=== PATIENT | male | born 1960 | race Hispanic/Latino ===

== ENCOUNTER 2016-05-26 10:23 | Observation (INO) | payer MEDICAID, OTHER ==
[2016-05-26 10:31] VITALS: BMI 25.1
[2016-05-26 11:16] LABS: BASO % 0.5 % (0.0-2.0); EOS # 0.3 K/uL (0.0-0.7); EOS % 3.4 % (0.0-4.0); HEMATOCRIT 39.5 % (35.0-51.0); LYMPH # 1.4 K/uL (1.0-4.3); LYMPH % 17.1 % (20.0-40.0); MEAN CELL VOLUME 88.1 fl (80.0-94.0); MEAN CORPUSCULAR HEMOGLOBIN 30.3 pg (27.0-31.0); MEAN CORPUSCULAR HGB CONC 34.3 g/dL (33.0-37.0); MEAN PLATELET VOLUME 9.8 fl (7.2-11.7); MONO # 0.9 K/uL (0.0-0.8); MONO % 10.7 % (0.0-10.0); NEUT # 5.6 K/uL (1.8-7.0); NEUT % 68.3 % (50.0-75.0); RED CELL DISTRIBUTION WIDTH 14.4 % (11.5-14.5); WHITE BLOOD COUNT 8.3 K/uL (4.8-10.8)
[2016-05-26 11:27] LABS: BLOOD UREA NITROGEN 13 mg/dl (9-20); CARBON DIOXIDE 23 mmol/L (22-30); CHLORIDE 104 mmol/L (98-107); GFR AFRICAN-AMERICAN > 60; GLUCOSE,RANDOM 98 mg/dL (75-110); SODIUM 139 mmol/l (132-148)
[2016-05-26 11:35] LABS: PARTIAL THROMBOPLASTIN TIME 27.8 SECONDS (23.3-32.5)
--- NOTE | 2016-05-26 11:39 | ED PDOC ---
HPI: Chest Pain Time Seen by Provider: 05/26/16 10:40 Chief Complaint (Nursing): Chest Pain Chief Complaint (Provider): Chest Pain History Per: Patient History/Exam Limitations: no limitations Current Symptoms Are (Timing): Still Present Severity: Mild Quality: "Pain" Associated Symptoms: Dyspnea. denies: Nausea Modifying Factors: None Exacerbating Factors: Exertion Alleviating Factors: None Additional Complaint(s): Patient is a 56 year old male with an extensive medical history, presents to ED for evaluation of chest pain for 1 month but worsening in the last 3 days. Patient reports pain is worse with exertion associated with SOB. Patient also reports bilateral leg swelling with pain for several months. Notes he ran out of his medication 1 week ago but has no insurance or a doctor in this area, originally from [place]. Denies palpations, radiation of pain, nausea or vomiting. Taking ASA daily. Past Medical History Reviewed: Historical Data, Nursing Documentation, Vital Signs Vital Signs: Last Vital Signs Temp 98.0 F 05/26/16 10:29 Pulse 67 05/26/16 10:29 Resp 16 05/26/16 10:29 BP 125/73 05/26/16 10:29 Pulse Ox 100 05/26/16 11:44 - Medical History PMH: Anxiety, CAD, HTN, Hypercholesterolemia - Surgical History Surgical History: CABG (2013), Coronary Stent (7 within 10 yrs) - Family History Family History: States: Unknown Family Hx - Immunization History Hx Tetanus Toxoid Vaccination: No Hx Influenza Vaccination: Yes (10/2015) Hx Pneumococcal Vaccination: No - Home Medications Home Medications: Ambulatory Orders Medication Instructions Recorded Aspirin [Ecotrin] 81 mg PO DAILY 05/26/16 Metoprolol Succinate [Metoprolol 50 mg PO DAILY 05/26/16 Succinate] Pantoprazole Sodium [Protonix] 40 mg PO DAILY 05/26/16 Risperidone [Risperidone Odt 0.25 mg PO BID 05/26/16 0.25MG] Sertraline [Zoloft] 50 mg PO DAILY 05/26/16 amLODIPine [Norvasc] 5 mg PO DAILY 05/26/16 traZODone [Desyrel] 100 mg PO HS 05/26/16 - Allergies Allergies/Adverse Reactions: Allergies Allergy/AdvReac Type Severity Reaction Status Date / Time atorvastatin calcium AdvReac SWELLING Verified 05/26/16 10:35 [From Lipitor] rosuvastatin calcium AdvReac SWELLING Verified 05/26/16 10:35 [From Crestor] ARI Risk Score for UA/NSTEMI - ARI Risk Score Age > 64: NO 3 or more CAD Risk Factors: YES Known CAD (Stenosis greater than 50%): NO Aspirin use in past 7 days: YES Severe Angina: YES EKG ST changes greater than 0.5mm: NO Positive Cardiac Marker: NO ARI Score: 3 Risk %: 13% Review of Systems ROS Statement: Except As Marked, All Systems Reviewed And Found Negative Eyes: Negative for: Vision Change Cardiovascular: Positive for: Chest Pain. Negative for: Palpitations, Light Headedness Respiratory: Positive for: Shortness of Breath. Negative for: Hemoptysis Gastrointestinal: Negative for: Nausea, Vomiting Musculoskeletal: Negative for: Neck Pain Neurological: Negative for: Weakness, Numbness, Headache, Dizziness Physical Exam - Reviewed Nursing Documentation Reviewed: Yes Vital Signs Reviewed: Yes - Physical Exam Appears: Positive for: Non-toxic, No Acute Distress Skin: Positive for: Normal Color, Warm. Negative for: Diaphoresis Eye Exam: Positive for: Normal appearance, PERRL Neck: Positive for: Normal, Painless ROM Cardiovascular/Chest: Positive for: Regular Rate, Rhythm, Chest Non Tender. Negative for: Murmur Respiratory: Positive for: Normal Breath Sounds. Negative for: Respiratory Distress Gastrointestinal/Abdominal: Positive for: Normal Exam. Negative for: Tenderness Extremity: Positive for: Normal ROM. Negative for: Calf Tenderness Neurologic/Psych: Positive for: Alert, Oriented - Laboratory Results Result Diagrams: 05/26/16 11:13 05/26/16 11:13 - ECG O2 Sat by Pulse Oximetry: 100 (RA) Pulse Ox Interpretation: Normal Medical Decision Making Medical Decision Making: Time: 1055 Initial impression: Chest pain r/o ACS due to history of CAD Initial plan: -- EKG -- BnP -- Troponin -- CBC -- PT/PTT -- CXR -- ASA -- Cardiac monitoring Scribe Attestation: Documented by Tiffanie Ann acting as a scribe for Racheal Mendoza MD MD Scribe Attestation: All medical record entries made by the Scribe were at my direction and personally dictated by me. I have reviewed the chart and agree that the record accurately reflects my personal performance of the history, physical exam, medical decision making, and the department course for this patient. I have also personally directed, reviewed, and agree with the discharge instructions and disposition. Disposition - Clinical Impression Clinical Impression: Chest pain - Patient ED Disposition Is Patient to be Admitted: Yes Discussed With DrAlexus: Yuan Cleary Doctor Will See Patient In The: ED Counseled Patient/Family Regarding: Studies Performed, Diagnosis - Disposition Disposition Time: 12:10 Condition: FAIR - Pt Status Changed To: Hospital Disposition Of: Observation - POA Present On Arrival: None, Poor Glycemic Control Core Measure Indicators: Chest Pain
[2016-05-26 11:40] LABS: POTASSIUM 4.7 MMOL/L (3.6-5.0)
[2016-05-26] MEDS: Pantoprazole 40 mg EC Tab PO SCH (13:39)
--- NOTE | 2016-05-26 13:43 | CP.PCM.HP ---
History of Present Illness - History of Present Illness History of Present Illness: Hospitalist Admission H&P (Patient was seen and examined at 12:45 PM 05/26/16 ER Bed #15) PMD: Dr. Corbin in [facility] but has not seen for some time as NO insurance CODE STATUS: NO living will/advance directive. FULL CODE. Would like best friend Kt Ornelas to be his Health Care Proxy. Patient could not provide Kt's contact information at the time of my exam. CHIEF COMPLAINT: Chest Pain 56 year old male (PMHx: CAD with multiple Stents/CABG, HTN, HLD with Allergy to Statins, Depression, B/L LE PAD, Insomnia) who presented to [facility] ER earlier this morning with a Chief Complaint of Chest Pain. Patien states that he ran out of his medications roughly 1 week ago. Then 3 days ago he started to experience a sharp/tight pressure like pain in the left chest along the left lower sternal border. This pain would last anywhere between 5 and 10 minutes and states that it was similar to the pain that he had that lead to his CABG. It was associated with numbness/tingling sensation in the palm and all of the fingertips of this left hand as well as the lateral anterior aspect of the left antecubital fossa. Then this morning, he states that these symptoms were at the most intense and became more persistant and the dyspnea (which he has been experiecing for the "some time" now) started to get worse as well. Because of this he became concerned and walked from the [facility] in [place] to [facility] to be evaluated. Please note that the patient was seen at [facility] for similar complaint from 01/21/16 through 02/02/16: 1). Echocardiogram 01/21/16 showed Normal LV Systolic Function, Borderline Dilated LQ, Trace Mitral and Tricuspid Regurgitation 2). Cardiac Enzymes at that time were negative x 3 3). He was discharged with instructions to follow up with Cue Worker/Health Clinic to have Stress Test done Patient reveals that he had a "sitting down" stress test at [facility] in [place], [place] a couple of weeks ago and was told that it was negative. Currently upon FULL ROS he is not experiencing the Chest Pain as described above but is experiencing Left lower rib cage tightness, NO dyspnea/sob/cough, NO soreness in throat/dysphagia/odynophagia, NO abdominal pain, NO n/v/d/c, ( Some blood with wiping roughly 1 week ago), NO burning/pain with urination, NO lightheadedness/dizziness, NO new change in vision/eye pain/(+)blurriness of vision when trying to read for some time now, NO new changes in hearing/ear pain /tinnitus, NO headaches, NO current paresthesias, NO edema, (+) Pain in the bilateral feet/ankles when walking (this is a chronic issue present for some due to Hx of PAD) PMHx: CAD S/P Cardiac Stents and CABG, HTN, HLD, Depression, B/L LE PAD with Leg Stents PSHx: CABG, Cardiac Catheterization, Left Leg Arterial Stents ALL: Statins (Causes severe myalgia in the bilateral lower legs) Medications: Metoprolol Tartrate 50 mg PO 1x/day, Trazadone 150 mg PO QHS, ASA 81 mg PO 1x/day, Amlodipine 5 mg PO 1x/day, Protonix 40 mg PO 1x/day, Risperdal 2.5 mg PO 2x/day Social Hx: 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, Lives at the [facility] in [facility], (+)Tobacco quit in November 2015 at which time smoking 1/2 pack a day for 10 years, (+) Alcohol quit in November 2015 when he was drinking 12 pack of beer daily for 40 plus years, NO illicit drugs Family Hx: Mom (first [place] in her late 50s, of [place] in her 70s), Dad ( alive in his 80s [place]), Sister (HTN), Brother (HTN, Alcoholism) Present on Admission - Present on Admission Any Indicators Present on Admission: Yes History of DVT/PE: No History of Uncontrolled Diabetes: No Urinary Catheter: No Decubitus Ulcer Present: No Review of Systems - Review of Systems Review of Systems: PLEASE SEE HPI Past Patient History - Past Medical History & Family History Past Medical History?: Yes Pertinent Family History: PLEASE SEE HPI - Past Social History Smoking Status: Former Smoker - CARDIAC Hx Hypercholesterolemia: Yes Hx Hypertension: Yes - INTEGUMENTARY Other/Comment: DVT left leg - MUSCULOSKELETAL/RHEUMATOLOGICAL Hx Falls: No - GASTROINTESTINAL Hx Gastroesophageal Reflux: Yes - PSYCHIATRIC Hx Anxiety: Yes - SURGICAL HISTORY Hx Coronary Artery Bypass Graft: Yes (2013) Hx Coronary Stent: Yes (7 within 10 yrs) - ANESTHESIA Hx Anesthesia: Yes Hx Anesthesia Reactions: No Meds Allergies/Adverse Reactions: Allergies Allergy/AdvReac Type Severity Reaction Status Date / Time atorvastatin calcium AdvReac SWELLING Verified 05/26/16 10:35 [From Lipitor] rosuvastatin calcium AdvReac SWELLING Verified 05/26/16 10:35 [From Crestor] Physical Exam - Constitutional Appears: Non-toxic, No Acute Distress - Head Exam Head Exam: ATRAUMATIC, NORMAL INSPECTION, NORMOCEPHALIC - Eye Exam Eye Exam: EOMI, Normal appearance, PERRL Pupil Exam: NORMAL ACCOMODATION, PERRL - ENT Exam ENT Exam: Mucous Membranes Moist, Normal Exam, Normal External Ear Exam, Normal Oropharynx - Neck Exam Neck exam: Positive for: Normal Inspection Additional comments: NO CERVICAL LYMPHADENOPATHY NO THYROMEGALY - Respiratory Exam Respiratory Exam: Clear to Auscultation Bilateral, NORMAL BREATHING PATTERN Additional comments: CTA B/L, NO R/R/W - Cardiovascular Exam Cardiovascular Exam: REGULAR RHYTHM, +S1, +S2 Additional comments: NS1 AND NS2, NO M/R/G - GI/Abdominal Exam GI & Abdominal Exam: Normal Bowel Sounds, Soft Additional comments: BS X 4, SOFT, NT, ND, NO HSM, NO GUARDING/REBOUND TENDERNESS - Rectal Exam Additional comments: EXTERNAL HEMORRHOIDS TENDER TO PALPATION NO OTHER LESIONS VISUALIZED OR PALPATED GOOD RECTAL TONE STOOL GUAIAC WAS NEGATIVE PROSTATE WAS NOT ENLARGED AND NO NODULES PALPATED - Extremities Exam Additional comments: BILATERAL UE PULSES ARE EQUAL AND STRONGER THAN THE BILATERAL LE PULSES BILATERAL UE AND LE ARE WARM, CAPILLARY REFILL IS 2 SECONDS, NO CYANOSIS, NO CLUBBING NO EDEMA IN THE BILATERAL UE AND LE - Neurological Exam Neurological exam: Alert, CN II-XII Intact, Oriented x3 - Psychiatric Exam Psychiatric exam: Normal Affect, Normal Mood Results - Vital Signs Recent Vital Signs: Last Vital Signs Temp 98.0 F 05/26/16 10:29 Pulse 67 05/26/16 10:29 Resp 16 05/26/16 10:29 BP 125/73 05/26/16 10:29 Pulse Ox 100 05/26/16 12:55 - Labs Result Diagrams: 05/26/16 11:13 05/26/16 11:13 Labs: Laboratory Results - last 24 hr 05/26/16 11:13 WBC 8.3 RBC 4.49 Hgb 13.6 Hct 39.5 MCV 88.1 MCH 30.3 MCHC 34.3 RDW 14.4 Plt Count 280 MPV 9.8 Neut % (Auto) 68.3 Lymph % (Auto) 17.1 L [place] % (Auto) 10.7 H Eos % (Auto) 3.4 Baso % (Auto) 0.5 Neut # 5.6 Lymph # 1.4 [place] # 0.9 H Eos # 0.3 Baso # 0.0 PT 10.8 INR 1.04 APTT 27.8 Sodium 139 Potassium 4.7 Chloride 104 Carbon Dioxide 23 Anion Gap 17 BUN 13 Creatinine 0.7 L Est GFR ( Amer) > 60 Est GFR (Non-Af Amer) > 60 Random Glucose 98 Calcium 9.0 Troponin I < 0.0120 NT-Pro-B Natriuret Pep 295 Assessment & Plan (1) Atypical chest pain Assessment and Plan: Place on observation in the telemetry unit considering personal history of CAD, HTN, Tobacco, and Premature CAD in first degree relative (Mom) EKG 05/26/16 showed NSR at 67 and no change from 01/21/16 Chest X Ray 05/26/16 showed NO active disease (follow up official reading) Troponin and EKG at 5 PM and 11 PM 05/26/16 F/U TSH, T4 05/27/16 ASA 81 mg PO 1x/day Metoprolol 50 mg PO 1x/day NO Statin considering history of extreme myalgia in bilateral lower legs F/U further recommendations by Cue Worker Dr. Ursula Ramirez whose help is appreciated Status: Acute (2) Hx of coronary artery disease Assessment and Plan: Please see details in HPI Status: Chronic (3) HTN (hypertension) Assessment and Plan: Metoprolol 50 mg PO 1x/day Amlodipine 5 mg PO 1x/day Status: Chronic (4) Hyperlipidemia Assessment and Plan: NO statins secondary to bilateral lower leg myalgias secondary to Crestor and Lipitor in the past F/U Fasting Lipid Panel 05/27/16 Status: Acute (5) PAD (peripheral artery disease) Assessment and Plan: Patient states that he had some test at [facility] a couple of weeks ago at the time of his stress test (Please see HPI above) and he states that he was told that the results were "not good". This is likely KASIE Test. Patient will need to follow up as an outpatient. Status: Chronic (6) Depression Assessment and Plan: Risperdal .25 mg PO 2x/day Will need to follow up with Psychiatry as outpatient Status: Chronic (7) Insomnia Assessment and Plan: Trazadone 150 mg PO QHS Status: Chronic (8) Hemorrhoid Assessment and Plan: As noted on rectal exam Anusol HC 2.5 %1 application BID Status: Acute (9) Prophylactic measure Assessment and Plan: Protonix 40 mg PO 1x/day Lovenox 40 mg SQ 1x/day Cardiac Diet Lengthy conversation with the patient about the need for frequent follow up concerning his medical issues (he splits his time between his Sister's in [facility] and [employer] here in [place]). He was given the [facility] information on 01/22/17 at the time of his discharge from [facility] but never followed up with them. I explained to patient that I have ordered a Valve Inserter consult to help him apply for [facility] so that he may follow up with the clinic as he will need follow up for his CAD, PAD, Depression, Hemorrhoids (he stated he had a normal Colonoscopy roughly 4 years ago), HTN, Insomnia, HLD. He expressed understanding. Disposition: If Troponins/EKG #2 and #3 are negative, if cleared by Cardiology, appropriate follow up is made with the [facility], then discharge patient on the morning of 05/27/16. Status: Acute
--- NOTE | 2016-05-26 14:42 | CON ---
DATE: 05/26/2016 REASON FOR CONSULTATION: Chest pain. The patient is a 56-year-old male who originally lived in [facility], who has a history of coronary artery disease, underwent multiple stenting before he underwent triple bypass surgery in 2013 in ___ __ hospital. The patient also has a history of peripheral vascular disease, underwent 3 stents to left leg. The patient is currently living in a [facility] and he came in because of re trosternal chest pain that at times he stated it was sharp and other times, he stated to me it was he aviness. The patient denies any radiation of the chest pain. Denies any associated diaphoresis. SOCIAL HISTORY: The patient is nonsmoker. He is homeless, lives in a [facility]. He cardoso s 1 grown-up son. MEDICATIONS: Trazodone 100 mg at bedtime, aspirin 81 mg once a day, Lovenox 40 mg once a day, Norvas c 5 mg once a day, Protonix 40 mg p.o. once a day, Toprol-XL 50 mg once a day. REVIEW OF SYSTEMS: No fever or chills. No vomiting or diarrhea. No dizziness or syncope. PHYSICAL EXAMINATION: GENERAL: The patient is a middle-aged male who does not appear to be in any distress. VITAL SIGNS: Blood pressure 125/73, heart rate 67, temperature 98, respirations 16. HEENT: Normocephalic. NECK: No JVD. CHEST: Clear. HEART: S1, S2 regular. ABDOMEN: Soft. EXTREMITIES: No edema. LABORATORIES: SMA-7 is within normal limits except for creatinine 0.7. PT, PTT are within normal li mits. CBC: White count, hemoglobin, hematocrit and platelet count are within normal limits. EKG re vealed normal sinus rhythm, possible left atrial enlargement. Chest x-ray revealed prominent broncho vascular markings. Echocardiograph study performed this past January in [facility] revealed no rmal ventricle size, wall thickness, and ejection fraction. ASSESSMENT: 1. Chest pain, rule out myocardial infarction. 2. Coronary artery disease, status post triple bypass surgery in 2013. The patient ran out of his [employer]. 3. History of depression. RECOMMENDATIONS: Continue current aspirin, subcutaneous Lovenox and Toprol-XL. Monitor daily EKGs a nd serial cardiac enzymes. Obtain urine for drug screen. Obtain psych social worker evaluation to help e patient with his medication supply in the future. Wade Ramirez MD cc: [id number] TT: 05/26/2016 14:41:28 Confirmation # [id number] Dictation # [id number] en
[2016-05-26] MEDS: Metoprolol Succinate 50 mg XL Tab PO SCH (14:45)
[2016-05-26] MEDS: Enoxaparin 40 mg Syringe SC SCH (14:46)
--- NOTE | 2016-05-26 16:40 | RAD ---
PROCEDURE: CHEST RADIOGRAPH, 1 VIEW HISTORY: chest pain COMPARISON: None available. FINDINGS: LUNGS: Clear. PLEURA: No pneumothorax or pleural fluid seen. CARDIOVASCULAR: No radiographic findings to suggest acute or significant cardiovascular disease. OSSEOUS STRUCTURES: No significant abnormalities. VISUALIZED UPPER ABDOMEN: Normal. OTHER FINDINGS: None. IMPRESSION: No active disease.
[2016-05-26] MEDS: Hydrocortisone 2.5% (Rectal) CREAM PR SCH (17:33)
[2016-05-26] MEDS: RISPERIDONE 0.25 MG ODT PO SCH (17:33)
--- NOTE | 2016-05-26 21:21 | CARD ---
APPROVED REPORT EKG Measurement Heart [id number] <Conclusion> Normal sinus rhythm Possible Left atrial enlargement Borderline ECG
[2016-05-27 07:23] LABS: BASO # 0.1 K/uL (0.0-0.2); BASO % 0.9 % (0.0-2.0); EOS # 0.3 K/uL (0.0-0.7); EOS % 3.9 % (0.0-4.0); LYMPH # 1.5 K/uL (1.0-4.3); LYMPH % 19.6 % (20.0-40.0); MEAN CELL VOLUME 89.9 fl (80.0-94.0); MEAN CORPUSCULAR HEMOGLOBIN 29.6 pg (27.0-31.0); MEAN PLATELET VOLUME 9.5 fl (7.2-11.7); MONO # 0.8 K/uL (0.0-0.8); MONO % 10.5 % (0.0-10.0); NEUT # 5.1 K/uL (1.8-7.0); NEUT % 65.1 % (50.0-75.0); NRBC % 0.1 % (0.0-0.0); WHITE BLOOD COUNT 7.8 K/uL (4.8-10.8)
[2016-05-27 07:32] LABS: ALKALINE PHOSPHATASE 79 U/L (38-126); ALT/SGPT 18 U/L (21-72); AST/SGOT 22 U/L (17-59); BILIRUBIN,TOTAL 0.6 mg/dl (0.2-1.3); BLOOD UREA NITROGEN 18 mg/dl (9-20); CALCIUM 8.9 mg/dL (8.4-10.2); CARBON DIOXIDE 23 mmol/L (22-30); CHLORIDE 105 mmol/L (98-107); CHOLESTEROL 163 mg/dL (0-199); GFR AFRICAN-AMERICAN > 60; GLUCOSE,RANDOM 91 mg/dL (75-110); PHOSPHOROUS 3.4 mg/dl (2.5-4.5); POTASSIUM 4.4 MMOL/L (3.6-5.0); SODIUM 139 mmol/l (132-148); TOTAL PROTEIN 7.4 G/DL (6.3-8.2)
[2016-05-27 07:47] LABS: T4 6.49 ug/dl (5.5-11.0)
[2016-05-27 08:01] LABS: THYROID STIMULATING HORMONE 1.65 mIU/ML (0.46-4.68)
[2016-05-27] MEDS: RISPERIDONE 0.25 MG ODT PO SCH (09:20)
[2016-05-27] MEDS: Enoxaparin 40 mg Syringe SC SCH (09:21)
[2016-05-27] MEDS: Pantoprazole 40 mg EC Tab PO SCH (09:21)
[2016-05-27] MEDS: Metoprolol Succinate 50 mg XL Tab PO SCH (09:21)
[2016-05-27] MEDS: Hydrocortisone 2.5% (Rectal) CREAM PR SCH (09:22)
[2016-05-27 12:19] VITALS: RESP 20
--- NOTE | 2016-05-27 14:09 | PN ---
DATE: 05/27/2016 The patient is experiencing postural dizziness. He denies chest pain. PHYSICAL EXAMINATION: VITAL SIGNS: Blood pressure 120/67, heart rate 60, temperature 97.8, respirations 20. HEENT: Normocephalic. NECK: No JVD. CHEST: Clear. HEART: S1, S2 regular. EXTREMITIES: No edema. Urine drug screen is negative. Today's SMA-7 is within normal limits. Total of 4 sets of troponins are negative. ASSESSMENT: 1. Atypical chest pain, myocardial infarction is ruled out. 2. History of coronary artery disease status post coronary artery bypass surgery. RECOMMENDATIONS: Continue current aspirin, subcutaneous Lovenox, Toprol-XL and Protonix. Obtain ser um D-dimer. Wade Ramirez MD cc: [id number] TT: 05/27/2016 14:08:54 Confirmation # [id number] Dictation # [id number] en
[2016-05-27] MEDS ORDERED: Thiamine 100 mg/ml Inj IV ONE (14:28)
--- NOTE | 2016-05-27 14:35 | CP.PCM.DIS ---
Provider - Provider Date of Admission: 05/26/16 14:00 Attending physician: Yuan Cleary MD Consults: Cardio DR Ramirez Time Spent in preparation of Discharge (in minutes): 45 Diagnosis - Discharge Diagnosis (1) Atypical chest pain Status: Acute (2) HTN (hypertension) Status: Chronic (3) Hx of coronary artery disease Status: Chronic (4) Hemorrhoid Status: Acute (5) Depression Status: Chronic (6) Insomnia Status: Chronic (7) PAD (peripheral artery disease) Status: Chronic Hospital Course - Lab Results Lab Results: Most Recent Lab Values WBC 7.8 K/uL (4.8-10.8) 05/27/16 06:50 RBC 4.79 Mil/uL (4.40-5.90) 05/27/16 06:50 Hgb 14.2 g/dL (12.0-18.0) 05/27/16 06:50 Hct 43.0 % (35.0-51.0) 05/27/16 06:50 MCV 89.9 fl (80.0-94.0) 05/27/16 06:50 MCH 29.6 pg (27.0-31.0) 05/27/16 06:50 MCHC 33.0 g/dL (33.0-37.0) 05/27/16 06:50 RDW 14.0 % (11.5-14.5) 05/27/16 06:50 Plt Count 230 K/uL (130-400) 05/27/16 06:50 MPV 9.5 fl (7.2-11.7) 05/27/16 06:50 Neut % (Auto) 65.1 % (50.0-75.0) 05/27/16 06:50 Lymph % (Auto) 19.6 % (20.0-40.0) L 05/27/16 06:50 Starr % (Auto) 10.5 % (0.0-10.0) H 05/27/16 06:50 Eos % (Auto) 3.9 % (0.0-4.0) 05/27/16 06:50 Baso % (Auto) 0.9 % (0.0-2.0) 05/27/16 06:50 Neut # 5.1 K/uL (1.8-7.0) 05/27/16 06:50 Lymph # 1.5 K/uL (1.0-4.3) 05/27/16 06:50 Starr # 0.8 K/uL (0.0-0.8) 05/27/16 06:50 Eos # 0.3 K/uL (0.0-0.7) 05/27/16 06:50 Baso # 0.1 K/uL (0.0-0.2) 05/27/16 06:50 PT 10.8 SECONDS (9.6-11.2) 05/26/16 11:13 INR 1.04 (0.92-1.08) 05/26/16 11:13 APTT 27.8 SECONDS (23.3-32.5) 05/26/16 11:13 Sodium 139 mmol/l (132-148) 05/27/16 06:50 Potassium 4.4 MMOL/L (3.6-5.0) 05/27/16 06:50 Chloride 105 mmol/L (98-107) 05/27/16 06:50 Carbon Dioxide 23 mmol/L (22-30) 05/27/16 06:50 Anion Gap 16 (10-20) 05/27/16 06:50 BUN 18 mg/dl (9-20) 05/27/16 06:50 Creatinine 0.8 mg/dL (0.8-1.5) 05/27/16 06:50 Est GFR ( Amer) > 60 05/27/16 06:50 Est GFR (Non-Af Amer) > 60 05/27/16 06:50 Random Glucose 91 mg/dL (75-110) 05/27/16 06:50 Calcium 8.9 mg/dL (8.4-10.2) 05/27/16 06:50 Phosphorus 3.4 mg/dl (2.5-4.5) 05/27/16 06:50 Magnesium 2.0 MG/DL (1.6-2.3) 05/27/16 06:50 Total Bilirubin 0.6 mg/dl (0.2-1.3) 05/27/16 06:50 AST 22 U/L (17-59) 05/27/16 06:50 ALT 18 U/L (21-72) L 05/27/16 06:50 Alkaline Phosphatase 79 U/L (38-126) 05/27/16 06:50 Troponin I < 0.0120 ng/mL (0.00-0.120) 05/27/16 06:50 NT-Pro-B Natriuret Pep 295 pg/ml (0-900) 05/26/16 11:13 Total Protein 7.4 G/DL (6.3-8.2) 05/27/16 06:50 Albumin 3.8 g/dL (3.5-5.0) 05/27/16 06:50 Globulin 3.6 gm/dL (2.2-3.9) 05/27/16 06:50 Albumin/Globulin Ratio 1.0 (1.0-2.1) 05/27/16 06:50 Triglycerides 96 mg/DL (0-149) 05/27/16 06:50 Cholesterol 163 mg/dL (0-199) 05/27/16 06:50 LDL Cholesterol Direct 116 mg/dL (0-129) 05/27/16 06:50 HDL Cholesterol 29 MG/DL (30-70) L 05/27/16 06:50 Thyroxine (T4) 6.49 ug/dl (5.5-11.0) 05/27/16 06:50 TSH 3rd Generation 1.65 mIU/ML (0.46-4.68) 05/27/16 06:50 Urine Opiates Screen Negative (NEGATIVE) 05/27/16 07:02 Urine Methadone Screen Negative (NEGATIVE) 05/27/16 07:02 Ur Barbiturates Screen Negative (NEGATIVE) 05/27/16 07:02 Ur Phencyclidine Scrn Negative (NEGATIVE) 05/27/16 07:02 Ur Amphetamines Screen Negative (NEGATIVE) 05/27/16 07:02 U Benzodiazepines Scrn Negative (NEGATIVE) 05/27/16 07:02 U Oth Cocaine Metabols Negative (NEGATIVE) 05/27/16 07:02 U Cannabinoids Screen Negative (NEGATIVE) 05/27/16 07:02 - Hospital Course Hospital Course: 56 y/o gent with hx of CAD s/p CABG, PAD s/p Stent, HTN, Depression, came in bec of chest pain (1) Atypical chest pain, ACS ruled out, further work up needed as outpatient Place on observation in the telemetry unit considering personal history of CAD, HTN, Tobacco, and Premature CAD in first degree relative (Mom) EKG 05/26/16 showed NSR at 67 and no change from 01/21/16 Chest X Ray 05/26/16 showed NO active disease Troponin x 4 neg NO Statin considering history of extreme myalgia in bilateral lower legs F/U further recommendations by Area Coordinator Dr. Ursula Ramirez whose help is appreciated D Dimer 0.57 - no signs of PE- normal saturation 98% on RA, no tachy chest pain resolved Status: Acute (2) Hx of coronary artery disease Assessment and Plan: Please see details in HPI Status: Chronic (3) HTN (hypertension) controlled Assessment and Plan: Metoprolol 50 mg PO 1x/day Amlodipine 5 mg PO 1x/day Status: Chronic (4) Hyperlipidemia Assessment and Plan: NO statins secondary to bilateral lower leg myalgias secondary to Crestor and Lipitor in the past (5) PAD (peripheral artery disease) Assessment and Plan: cont ASA Patient will need to follow up as an outpatient for further testing palpable femoral, popliteal and DP pulse bilaterally , foot warm Status: Chronic (6) Depression Assessment and Plan: Risperdal .25 mg PO 2x/day Will need to follow up with Psychiatry as outpatient Status: Chronic (7) Insomnia Assessment and Plan: Trazadone 150 mg PO QHS Status: Chronic (8) Hemorrhoid Assessment and Plan: As noted on rectal exam Anusol HC 2.5 %1 application BID Status: Acute (9) Prophylactic measure Assessment and Plan: Protonix 40 mg PO 1x/day Lovenox 40 mg SQ 1x/day Cardiac Diet Discharge Exam - Head Exam Head Exam: ATRAUMATIC, NORMAL INSPECTION, NORMOCEPHALIC - Eye Exam Eye Exam: EOMI, Normal appearance Pupil Exam: NORMAL ACCOMODATION - ENT Exam ENT Exam: Mucous Membranes Moist, Normal External Ear Exam - Neck Exam Neck exam: Full Rom - Respiratory Exam Respiratory Exam: NORMAL BREATHING PATTERN. absent: Respiratory Distress - Cardiovascular Exam Cardiovascular Exam: REGULAR RHYTHM, +S1, +S2 - GI/Abdominal Exam GI & Abdominal Exam: Normal Bowel Sounds, Soft. absent: Tenderness - Extremities Exam Extremities exam: normal capillary refill, pedal pulses present Additional comments: no calf tenderness DP pulses palpable - Back Exam Back exam: FULL ROM. absent: CVA tenderness (L), CVA tenderness (R), paraspinal tenderness, vertebral tenderness - Neurological Exam Neurological exam: Alert, CN II-XII Intact, Oriented x3, Reflexes Normal - Psychiatric Exam Psychiatric exam: Normal Affect, Normal Mood - Skin Skin Exam: Dry, Normal Color, Warm Discharge Plan - Discharge Medications Prescriptions: Aspirin 325 mg PO DAILY #30 tab Multivitamin/Iron/Folic Acid [Centrum Complete Multivit Tab] 1 each PO DAILY # 30 tablet traZODone [Desyrel] 100 mg PO HS #30 tab amLODIPine [Norvasc] 5 mg PO DAILY #30 tab Famotidine [Pepcid] 20 mg PO DAILY #30 tab Risperidone [Risperidone Odt 0.25MG] 0.25 mg PO BID #60 odt Metoprolol Succinate [Toprol XL] 50 mg PO DAILY #30 ter - Follow Up Plan Condition: STABLE Disposition: HOME/ ROUTINE Additional Instructions: ff up with private Cardio marielle- for further cardiac work up Vascular Sx ff up to eval LE PAD/Stents appt FP clinic in 1-2 wks Referrals: [facility] [Outside] [facility] [place] [Outside]
[2016-05-27] MEDS ORDERED: Thiamine 100 MG in Sodium Chloride 0.9% 50 ML IV ONE (14:45)
[2016-05-27 15:42] VITALS: BP 124/75; PULSE 62; TEMP 97.7; O2SAT 99
== END 2016-05-27 18:30 | disposition home or self-care (01) ==
LOC: H.ER 10:23 → H.ERHOLD 14:00 → H.TEL 16:30
PROVIDERS: ADMIT Family Medicine; ATTEND Family Medicine
DX: R07.89 Other chest pain (principal); E78.5 Hyperlipidemia, unspecified; F32.9 Major depressive disorder, single episode, unspecified; G47.00 Insomnia, unspecified; I10 Essential (primary) hypertension; I25.10 Atherosclerotic heart disease of native coronary artery without angina pectoris; I73.9 Peripheral vascular disease, unspecified; Z95.1 Presence of aortocoronary bypass graft; Z95.5 Presence of coronary angioplasty implant and graft; E78.00 Pure hypercholesterolemia, unspecified; Z95.820 Peripheral vascular angioplasty status with implants and grafts; F41.9 Anxiety disorder, unspecified
CPT/HCPCS: 36415; 71010; 80048; 80053; 80061; 83735; 83880; 84100; 84436; 84443; 84484; 85025; 85378; 85610; 85730; 93005; 96372; 99285; G0378; G0480; J1650; J3411; J3420